=== PATIENT | female | born 1975 | race Caucasian/White ===

== ENCOUNTER → 2023-02-07 | Outpatient (CLI) | payer OTHER, SELFPAY ==
[2023-02-07 15:32] LABS: Absolute Lymphocyte Count 1.68 X10^3/uL (0.83-4.51); Absolute Neutrophil Count 4.1 X10^3/uL (2.0-7.7); Basophil# 0.07 X10^3/uL; Basophil% 1.1 % (0-1); Eosinophil# 0.16 X10^3/uL; Eosinophils% 2.5 % (0-5); Hemoglobin 13.2 g/dL (12.0-15.0); Lymphocyte # 1.68 X10^3/ul (0.83-4.51); Lymphocyte % 26.2 % (19-41); Mean Corp Hgb Conc 32.2 g/dL (32-36); Mean Corpuscular Hgb 28.8 pg (27.0-32.0); Mean Corpuscular Volume 89.5 fL (81-99); Mean Platelet Vol. 9.9 fl (6.2-12.0); Monocyte# 0.39 X10^3/uL; Monocyte% 6.1 % (0-10); NRBC Flagged by Analyzer 0 % (0-5); Neutrophil % 63.9 % (47-70); Platelet Count 249 K/mm3 (150-450); RBC Distribution Width CV 13.5 % (11.6-14.6); RBC Distribution Width SD 43.9 fl (35.1-43.9); RET-HE 31.6 pg (30-35); Red Blood Count 4.58 M/mm3 (4.2-5.4); Reticulocyte Count 0.98 % (0.5-1.5); White Blood Count 6.4 K/mm3 (4.4-11.0)
[2023-02-07 15:44] LABS: Erythrocyte Sedimentation Rate 5 mm/hr (0-30)
[2023-02-07 16:14] LABS: Amylase 48 U/L (25-115); CPK Total, Creatine Kinase 53 U/L (26-192); CRP < 2.90 mg/L (0.0-3.0); Iron 38 ug/dL (50-170); LDH 166 U/L (84-246); Lipase 29 U/L (13-75); Prolactin 5.7 ng/mL
[2023-02-09 17:07] LABS: Endomysial Antibody IgA Negative (Negative); Immunoglobulin A 244 mg/dL (87-352); t-Transglutaminase IgA <2 U/mL (0-3)
[2023-02-11 13:08] LABS: Anti-Centromere B Ab <0.2 AI (0.0-0.9); Anti-Chromatin <0.2 AI (0.0-0.9); Anti-Jo <0.2 AI (0.0-0.9); Anti-Scleroderma-70 AB <0.2 AI (0.0-0.9); Anti-dsDNA Ab 1 IU/mL (0-9); Beef <0.10 kU/L (Class 0); Chocolate <0.10 kU/L (Class 0); Clam <0.10 kU/L (Class 0); Codfish <0.10 kU/L (Class 0); Corn <0.10 kU/L (Class 0); Egg, White <0.10 kU/L (Class 0); Egg, Whole <0.10 kU/L (Class 0); Milk (Cow) <0.10 kU/L (Class 0); Peanut <0.10 kU/L (Class 0); Pork <0.10 kU/L (Class 0); RNP Ab 0.3 AI (0.0-0.9); SCALLOP <0.10 kU/L (Class 0); SESAME SEED <0.10 kU/L (Class 0); SJOGREN'S Anti-SS-A test < 0.2 AI (0.0-0.9); SJOGREN'S Anti-SS-B test < 0.2 AI (0.0-0.9); Shrimp <0.10 kU/L (Class 0); Smith Ab <0.2 AI (0.0-0.9); Soybean <0.10 kU/L (Class 0); Walnut, (Food) <0.10 kU/L (Class 0); Wheat <0.10 kU/L (Class 0)
[2023-02-12 00:07] LABS: Alpha-1-Globulins 0.2 g/dL (0.0-0.4); Alpha-2-Globulins 0.7 g/dL (0.4-1.0); Cytoplasmic Ab (C-ANCA) <1:20 titer (Neg:<1:20); Gamma Globulin 1.2 g/dL (0.4-1.8); H. Pylori Antibody (IgG) 0.29 (0.00-0.79); IgG, Quant 1137 mg/dL (586-1602); Immunoglobulin A 265 mg/dL (87-352); Immunoglobulin E 65 IU/mL (6-495); Immunoglobulin G, Subclass 1 528 mg/dL (248-810); Immunoglobulin G, Subclass 2 429 mg/dL (130-555); Immunoglobulin G, Subclass 3 57 mg/dL (15-102); Immunoglobulin G, Subclass 4 39 mg/dL (2-96); Immunoglobulin M 71 mg/dL (26-217); PROEL- TOTAL PROTEIN 7.3 g/dL (6.0-8.5); Perinuclear Ab (P-ANCA) <1:20 titer (Neg:<1:20)
== END | disposition home or self-care (01) ==
LOC: LAB 14:47
PROVIDERS: PCP Nurse Practitioner Family; Referring Provider Internal Medicine Gastroenterology; Visit Provider Internal Medicine Gastroenterology
DX: K59.00 Constipation, unspecified (principal); R14.0 Abdominal distension (gaseous)
CPT/HCPCS: 36415; 82150; 82533; 82550; 82784; 82785; 82787; 83516; 83540; 83615; 83690; 84146; 84165; 85025; 85045; 85652; 86003; 86005; 86140; 86225; 86235; 86255; 86256; 86334; 86677

== ENCOUNTER → 2024-01-13 | Outpatient (CLI) | payer SELFPAY, OTHER ==
--- NOTE | 2024-01-13 08:55 | RDU_ITS ---
Reason For Study: S/P MALS / Renal Vein compression surgery Aorta Proximal abdominal aorta 1.73 x 1.72 cm . Proximal abdominal aorta peak systolic velocity is 94.1 cm/sec . Distal abdominal aorta 1.61 x 1.61 cm . Distal abdominal aorta peak systolic velocity is 90.4 cm/sec . . . Celiac A CARLIN - 175.6/40.8 cm/sec Celiac A CARLIN w/INSP - 148.9/37.6cm/sec Celiac A CARLIN w/EXP - 141.8/37.6 cm/sec CELIAC TRUNK PROX - 182.8/48.5 cm/s Hepatic A - 180.1/46.7 cm/sec Splenic A - 184.0/54.5 cm/sec SMA CARLIN - 269.2/41.6 cm/sec SMA CARLIN w INSP - 257.4/38.4 cm/sec SMA CARLIN w EXP - 249.6/32.5 cm/sec SMA Prox - 216.3/25.5 cm/sec SMA Mid - 132.2/19.1 cm/sec SMA Dist - 125.8/19.1 cm/sec EMILY PROX - 119.3/15.8 cm/sec Lt Renal V - Appears spontaneous, phasic and patent. Rt Renal V - Appears spontaneous, phasic and patent. Procedures Mesenteric Artery Duplex with B-Mode, Pulsed Wave and Color Doppler. VL/Renal Artery Duplex Ultrasound Interpretation Summary Celiac artery patent with normal velocities and no evidence of stenosis. No dyn amic compression identified. Superior mesenteric artery patent with normal velocities and no evidence of meera nosis. Inferior mesenteric artery patent with normal velocities Bilateral renal veins patent with normal flow patterns. Ordering Physician: Cecilia French Referring Physician: Cecilia French Performed By: Damir Lord, RVT
== END | disposition home or self-care (01) ==
PROVIDERS: PCP Nurse Practitioner Family; Referring Provider Nurse Practitioner Family; Visit Provider Nurse Practitioner Family
DX: I87.1 Compression of vein (principal); R63.8 Other symptoms and signs concerning food and fluid intake
CPT/HCPCS: 82024; 82533; 93975

== ENCOUNTER → 2024-09-14 | Outpatient (CLI) | payer SELFPAY, OTHER ==
--- NOTE | 2024-09-14 07:47 | RDU_ITS ---
Reason For Study: S/P MALS / Renal Vein Compression Surgery Aorta Proximal abdominal aorta 1.90 x 1.87 cm . Proximal abdominal aorta peak systolic velocity is 81.4 cm/sec . Distal abdominal aorta 1.57 x 1.63 cm . Distal abdominal aorta peak systolic velocity is 70.9 cm/sec . Celiac A CARLIN - 192.0/48.5 cm/sec Celiac A CARLIN w/INSP - 158.4/42.4cm/sec Celiac A CARLIN w/EXP - 149.6/44.1 cm/sec CELIAC TRUNK PROX - 152.3/52.4 cm/s Hepatic A - 175.0/37.9 cm/sec Splenic A - 127.9/48.8 cm/sec SMA CARLIN - 165.1/19.1 cm/sec SMA CARLIN w INSP - 124.4/17.9 cm/sec SMA CARLIN w EXP - 158.3/17.9 cm/sec SMA Prox - 203.6/27.1 cm/sec SMA Mid - 172.2/23.1 cm/sec SMA Dist - 160.4/27.1 cm/sec EMILY PROX - 133.0/0.0 cm/sec Lt Renal V - Appears spontaneous, phasic and patent. Rt Renal V - Appears spontaneous, phasic and patent. VL/Renal Artery Duplex Ultrasound Interpretation Summary Celiac artery patent with normal velocities and no evidence of stenosis. Superior mesenteric artery patent with normal velocities and no evidence of meera nosis. Inferior mesenteric artery patent with normal velocities and no evidence of meera nosis. Right renal vein patent with normal venous flow pattern Left renal vein patent with normal venous flow pattern Ordering Physician: Azucena Powell Referring Physician: Azucena Powell Performed By: Damir Lord RVT and Student
== END | disposition home or self-care (01) ==
LOC: CVS 07:46
PROVIDERS: PCP Student in an Organized Health Care Education/Training Program; Referring Provider Student in an Organized Health Care Education/Training Program; Visit Provider Student in an Organized Health Care Education/Training Program
DX: I87.1 Compression of vein (principal)
CPT/HCPCS: 93975